=== PATIENT | male | born 1985 | race Caucasian/White ===

== ENCOUNTER 2020-06-22 11:18 | Outpatient (CLI) | payer OTHER, SELFPAY ==
--- NOTE | ~2020-06-22 | XR_ITS ---
EXAMINATION: XR ribs LT 2V w CXR 2V INDICATION: Left-sided chest pain TECHNIQUE: PA and lateral views of the chest and 3 views of the left ribs were obtained. COMPARISON: None. FINDINGS: The lungs are free of acute opacities. There is no pleural effusion or pneumothorax. The ca rdiomediastinal silhouette is normal. The visualized bones and soft tissues are unremarkable. No disp laced rib fracture is identified. IMPRESSION: 1. No acute cardiopulmonary abnormality or evidence of displaced rib fracture. Reviewed, dictated and finalized at location A.
--- NOTE | ~2020-06-22 | XR_ITS ---
EXAMINATION:XR cervical spine 4-5V DATE: 06/22/2020 11:59 INDICATION: Cervicalgia TECHNIQUE: AP, lateral, lateral swimmers and odontoid views of the cervical spine are provided. COMPARISON: None FINDINGS: Alignment is normal. The odontoid is intact. No fracture is identified. Vertebral body heig hts and disk spaces are normal. Prevertebral soft tissues are normal. IMPRESSION: 1. Unremarkable cervical spine. Reviewed, dictated and finalized at location A.
== END 2020-06-22 11:19 | disposition home or self-care (01) ==
LOC: ANHIMG 11:33
PROVIDERS: PCP Family Medicine; Visit Provider Physician Assistant
DX: M54.2 Cervicalgia (principal); R07.81 Pleurodynia
CPT/HCPCS: 71046; 71100; 72050

== ENCOUNTER → 2021-04-16 12:02 | Outpatient (CLI) | payer OTHER, SELFPAY ==
--- NOTE | ~2021-04-16 | XR_ITS ---
EXAMINATION: XR wrist RT min 3V DATE: 04/16/2021 12:32 INDICATION: Right wrist pain TECHNIQUE: Posteroanterior, ulnar deviation, oblique, and lateral views of the right wrist were obtai nalini. COMPARISON: none FINDINGS: Alignment is normal. No fracture. Joint spaces are normal. Soft tissues are unremarkable. IMPRESSION: 1. Negative right wrist radiographs. Reviewed, dictated and finalized at location A.
== END ==
PROVIDERS: PCP Family Medicine; Visit Provider Family Medicine
DX: M25.531 Pain in right wrist (principal)
CPT/HCPCS: 73110

== ENCOUNTER 2022-02-16 12:50 | Emergency (ER) | payer OTHER, SELFPAY ==
[2022-02-16 13:09] VITALS: BP 147/81; PULSE 67; RESP 18; TEMP 36.3; O2SAT 99
--- NOTE | 2022-02-16 13:44 | ED.URI ---
HPI - URI/Sore Throat General Chief Complaint: Upper Respiratory Infection Stated Complaint: cold symptoms Time Seen by Provider: 02/16/22 13:26 Source: patient and RN notes reviewed Mode of arrival: ambulatory Limitations: no limitations History of Present Illness HPI Narrative: Patient presents today complaining of a 6-day history of fever up to 100.1, chills, body aches, headache, sore throat, cough, and sinus pressure. States his symptoms have very slightly improved since onset. Denies shortness of breath. Denies history of asthma or COPD. He has been taking Tylenol and ibuprofen with mild relief. He has been vaccinated against COVID-19, but not influenza. MD elicited complaint: fever, cough, sore throat and nasal congestion Related Data Allergies Allergy/AdvReac Type Severity Reaction Status Date / Time lisinopril AdvReac Intermediate depressed Verified 02/16/22 13:23 mood; mood changes Review of Systems Review of Systems: CONSTITUTIONAL: Denies sweats.+ Fever, chills, body aches EYES: Denies visual changes, redness, or discharge. ENT: Denies rhinorrhea,otalgia.+ Congestion sore throat, sinus pressure CARDIOVASCULAR: Denies chest pain, palpitations, or edema. RESPIRATORY: Denies dyspnea.+ Cough GASTROINTESTINAL: Denies abdominal pain, nausea, vomiting, or diarrhea. GENITOURINARY: Denies dysuria or hematuria. SKIN: Denies rash, itching, or wounds. MUSCULOSKELETAL: Denies back pain, joint pain, or myalgia. NEUROLOGIC: Denies numbness, tingling, or weakness.+ Headache PSYCH: Denies depression or anxiety. PMFSH Past Medical History Medical History Back injury Diverticulitis GERD (gastroesophageal reflux disease) HLD (hyperlipidemia) Kidney stones UTI (urinary tract infection) Surgical History Surgical History H/O inguinal hernia repair Hx of myringotomy Hx of tonsillectomy Family History Family History Mother Asthma Patient's mother is in good health Father Patient's father is in good health Social History Social History Smoking status: Never smoker Second hand tobacco smoke exposure: No Alcohol intake: never Substance use: never Substance use type: does not use Gender identity (if verbalized by the patient): Male Sexual Orientation (if Verbalized by the Patient): Straight or Heterosexual Comments At time of signature, I have reviewed and agree with nursing past medical, surgical, social and family history unless otherwise noted. Please see nursing chart for further information. There is no relevant family history pertinent to the presenting complaint Exam Narrative: GENERAL: Well-appearing, well-nourished, and in no acute distress. HEAD: Normocephalic, atraumatic. EYES: EOMI. No redness or drainage. Conjunctivae normal. ENT: Mucous membranes pink and moist. Nares congested. Bilateral nasal turbinates are edematous with rhinorrhea. TMs normal bilaterally. Throat normal. Uvula midline. NECK: Normal AROM. Supple. No lymphadenopathy. CHEST: No respiratory distress. Clear to auscultation. HEART: Regular rate and rhythm. No murmur appreciated. Normal peripheral pulses. EXTREMITIES: Normal range of motion. No edema. SKIN: Warm, dry, no rash. Capillary refill normal. Normal skin turgor. NEURO: No focal deficits. Alert and oriented x3. Gait steady. PSYCH: Normal affect. No signs of depression or anxiety. Course Course Level of Care: Express Care Visit Vital Signs Vital signs: Vital Signs Temperature 97.4 F L 02/16/22 13:09 Pulse Rate 67 02/16/22 13:09 Respiratory Rate 18 02/16/22 13:09 Blood Pressure 147/81 H 02/16/22 13:09 Pulse Oximetry 99 02/16/22 13:09 Temperature 97.4 F L 02/16/22 13:09 Pulse Rate 6
== END 2022-02-16 13:53 | disposition home or self-care (01) ==
PROVIDERS: Emergency Provider Nurse Practitioner; PCP Family Medicine
DX: J06.9 Acute upper respiratory infection, unspecified (principal); Z20.822 Contact with and (suspected) exposure to COVID-19; K21.9 Gastro-esophageal reflux disease without esophagitis; E78.5 Hyperlipidemia, unspecified
CPT/HCPCS: 87081; 87426; 87804; 87880; 99213; C9803; G0463

== ENCOUNTER 2023-01-22 06:32 | Outpatient (CLI) | payer OTHER, SELFPAY ==
[2023-01-22 06:53] LABS: Hematocrit 44.7 % (42.0-52.0); Hemoglobin 16.2 g/dL (14.0-18.0); Mean Corpuscular HGB Conc 36.2 g/dl (32-36); Mean Corpuscular Hemoglobin 29.2 pg (26-34); Mean Corpuscular Volume 80.5 fl (80-100); Mean Platelet Volume 8.7 fl (7.4-10.4); Platelet Count Result 190 k/mm3 (150-375); Red Blood Count 5.55 M/mm3 (4.6-6.20); Red Cell Distribution Width 12.4 % (11.5-14.5); White Blood Count 6.4 K/mm3 (4.5-10.0)
[2023-01-22 07:16] LABS: Alanine Aminotransferase 60 U/L (6-50); Albumin Level 4.4 g/dL (3.5-5.1); Alkaline Phosphatase 79 U/L (38-126); Anion Gap 4 mmol/L (8-16); Aspartate Amino Transferase 34 U/L (17-59); Bilirubin,Total 1.2 mg/dL (0.2-1.3); Blood Urea Nitrogen 15 mg/dL (9-20); Calcium 8.9 mg/dL (8.4-10.2); Carbon Dioxide 31 mmol/L (22-30); Chloride 105 mmol/L (98-107); Cholesterol 174 mg/dL (0-200); Estimated Glomerular Filt Rate > 60; Glucose 97 mg/dL (65-110); HDL Direct 30 mg/dL; Potassium 3.7 mmol/L (3.4-5.0); Sodium 140 mmol/L (137-145); Triglycerides 140 mg/dL (<150)
[2023-01-22 07:27] LABS: LDL Cholesterol Direct 104 mg/dL
[2023-01-22 08:00] LABS: Appearance Urine Clear (Clear); Bacteria Urine None Seen /hpf; Bilirubin Urine Negative (Negative); Blood Urine Negative (Negative); Color Urine Dark Yellow (Yellow); Glucose Urine UA Negative (Negative); Ketones Urine Trace mg/dL (Negative); Leukocyte Esterase Ur Negative LEU/UL (NEGATIVE); Need Manual Microscopic Reviewed; Nitrate Urine Negative (Negative); Non Pathogenic Casts 0-2; Protein Urine Trace mg/dL (Negative); RBC Urine 0-2 /hpf (0-2); Specific Grav Ur 1.029 (1.001-1.035); Squamous Epithelial Cell Urine None seen /hpf (Few); WBC Urine 0-5 /hpf (0-3); pH Urine 5.5 (5.0-9.0)
[2023-01-22 08:02] LABS: Add Urine Microscopic? YES
== END 2023-01-22 06:33 | disposition home or self-care (01) ==
LOC: ANHLAB 06:34
PROVIDERS: PCP Family Medicine; Visit Provider Physician Assistant
DX: Z00.00 Encounter for general adult medical examination without abnormal findings (principal); G47.33 Obstructive sleep apnea (adult) (pediatric); K21.9 Gastro-esophageal reflux disease without esophagitis; I10 Essential (primary) hypertension
CPT/HCPCS: 36415; 80053; 80061; 81001; 84443; 85027

== ENCOUNTER 2023-08-24 10:40 | Emergency (ER) | payer OTHER, SELFPAY ==
[2023-08-24 10:53] VITALS: BP 124/82; PULSE 66; RESP 16; TEMP 36.3; O2SAT 97
--- NOTE | 2023-08-24 11:57 | ED.GENADULT ---
HPI - General Adult General Chief complaint: Upper Respiratory Infection Stated complaint: Sore Throat Time Seen by Provider: 08/24/23 11:57 Source: patient Mode of arrival: ambulatory Limitations: no limitations History of Present Illness HPI narrative: 37-YEAR-OLD MALE PATIENT PRESENTS TO THE [facility] WITH COMPLAINTS OF A SCRATCHY THROAT THAT STARTED THIS MORNING. PATIENT STATES THAT HIS WAS DIAGNOSED WITH STREP LAST WEEK AND WHEN TO COME IN AND GET CHECKED OUT AND SWAB. PATIENT STATES HIS THROAT PAIN HAS GOTTEN BETTER DENIES ANY FEVERS, BODY ACHES OR CHILLS. Related Data Allergies Allergy/AdvReac Type Severity Reaction Status Date / Time amlodipine AdvReac Intermediate Swelling Verified 08/24/23 11:14 lisinopril AdvReac Intermediate depressed Verified 08/24/23 11:14 mood; mood changes Review of Systems Review of Systems: CONSTITUTIONAL: Denies fever, chills, or sweats. EYES: Denies visual changes, redness, or discharge. ENT: Denies rhinorrhea, congestion, POSITIVE sore throat, or otalgia. CARDIOVASCULAR: Denies chest pain, palpitations, or edema. RESPIRATORY: Denies cough or dyspnea. GASTROINTESTINAL: Denies abdominal pain, nausea, vomiting, or diarrhea. GENITOURINARY: Denies dysuria or hematuria. SKIN: Denies rash or itching. MUSCULOSKELETAL: Denies back pain, joint pain, or myalgia. NEUROLOGIC: Denies headache, numbness, or weakness. PSYCHIATRIC: Denies anxiety or depression. [facility] Past Medical History Medical History Back injury Diverticulitis GERD (gastroesophageal reflux disease) HLD (hyperlipidemia) Kidney stones UTI (urinary tract infection) Witnessed episode of apnea Surgical History Surgical History H/O inguinal hernia repair Hx of myringotomy Hx of tonsillectomy Family History Family History Mother Asthma Patient's mother is in good health Father Patient's father is in good health Social History Social History Smoking status: Never smoker Second hand tobacco smoke exposure: No Alcohol intake: never Substance use: never Substance use type: does not use Living arrangements: with family Occupation/Education: occupation Gender identity (if verbalized by the patient): Male Sexual Orientation (if Verbalized by the Patient): Straight or Heterosexual Comments At the time of my signature I agree with nursing past medical history, surgical, social, and family history. There is no relevant family history pertinent to the presenting complaint. Exam Narrative: GENERAL: Well-appearing, well-nourished, and in no acute distress. HEAD: Normocephalic, atraumatic. EYES: PERRLA and EOMI. ENT: Nares clear, no rhinorrhea or epistaxis. Mucous membranes moist. posterior pharynx no erythema, tonsillar enlargement, exudates or lesions present. Bilateral TMs are clear no erythema or foreign bodies the canal. NECK: Supple. No lymphadenopathy CHEST: Clear to auscultation. No respiratory distress. HEART: Regular rate and rhythm. No murmur heard. Normal peripheral pulses. ABDOMEN: Soft, nontender, nondistended, normal active bowel sounds. EXTREMITIES: Normal range of motion. No edema. SKIN: Warm, dry, no rash. NEURO: No focal deficits. Alert and oriented x3. Course Course Level of Care: Express Care Visit Vital Signs Vital signs: Vital Signs Temperature 36.3 C L 08/24/23 10:53 Pulse Rate 66 08/24/23 10:53 Respiratory Rate 16 08/24/23 10:53 Blood Pressure 124/82 08/24/23 10:53 Pulse Oximetry 97 08/24/23 10:53 Oxygen Delivery Room Air 08/24/23 10:53 Temperature 36.3 C L 08/24/23 10:53 Pulse Rate 66 08/24/23 10:53 Respiratory Rate 16 08/24/23 10:53 Blood Pressure 124/82 08/24/23 10:53 Pulse Oximetry 97
== END 2023-08-24 12:05 | disposition home or self-care (01) ==
PROVIDERS: Emergency Provider Nurse Practitioner Family; PCP Family Medicine
DX: J02.9 Acute pharyngitis, unspecified (principal); E78.5 Hyperlipidemia, unspecified
CPT/HCPCS: 87081; 87880; 99213; G0463

== ENCOUNTER 2024-04-09 08:13 | Emergency (ER) | payer OTHER, SELFPAY ==
[2024-04-09 08:34] VITALS: BP 123/84; PULSE 58; RESP 18; TEMP 36.7; O2SAT 98
[2024-04-09 08:40] VITALS: BP 123/84; PULSE 58; RESP 18; TEMP 36.7; O2SAT 98
--- NOTE | 2024-04-09 08:54 | ED.WOUNDLAC ---
HPI - Wound/Laceration General Chief Complaint: Wound/Laceration Stated Complaint: cut to rt pinky finger Time Seen by Provider: 04/09/24 08:54 Source: patient Mode of arrival: ambulatory Limitations: no limitations History of Present Illness HPI narrative: 38-year-old male presented for complaint of laceration to the right little finger after injury last night. He states he cut his finger on a piece of a car. Rinsed it in the sink and applied bandaid. Endorses tetanus is up-to-date within the last 5 years. Denies decreased range of motion or weakness to the finger. Related Data Allergies Allergy/AdvReac Type Severity Reaction Status Date / Time amlodipine AdvReac Intermediate Swelling Verified 04/09/24 08:40 lisinopril AdvReac Intermediate depressed Verified 04/09/24 08:40 mood; mood changes Review of Systems Review of Systems: CONSTITUTIONAL: Denies body aches, fever, chills, or sweats. CARDIOVASCULAR: Denies chest pain, palpitations, or edema. RESPIRATORY: Denies cough or dyspnea. GASTROINTESTINAL: Denies abdominal pain, nausea, vomiting, or diarrhea. SKIN: reports little finger laceration MUSCULOSKELETAL: Denies back pain, joint pain, or myalgia. NEUROLOGIC: Denies headache, numbness, tingling, or weakness. [facility] Past Medical History Medical History Back injury Diverticulitis GERD (gastroesophageal reflux disease) HLD (hyperlipidemia) Kidney stones UTI (urinary tract infection) Witnessed episode of apnea Surgical History Surgical History H/O inguinal hernia repair Hx of myringotomy Hx of tonsillectomy Family History Family History Mother Asthma Patient's mother is in good health Father Patient's father is in good health Social History Social History Smoking status: Never smoker Second hand tobacco smoke exposure: No Alcohol intake: never Substance use: never Substance use type: does not use Living arrangements: with family Occupation/Education: occupation Gender identity (if verbalized by the patient): Male Sexual Orientation (if Verbalized by the Patient): Straight or Heterosexual Comments At time of signature, I have reviewed and agree with nursing past medical, surgical, social and family history unless otherwise noted. Please see nursing chart for further information. There is no relevant family history pertinent to the presenting complaint Exam Narrative: GENERAL: Well-appearing ENT: Mucous membranes moist. Oropharynx without edema, erythema or lesions. NECK: Supple. No lymphadenopathy CHEST: Clear to auscultation. HEART: Regular rate and rhythm. SKIN: Warm, dry. Right 5th digit distal phalanx with 1.5cm irregular laceration, active bleeding, minimal nail edge involvement, CMS intact. NEURO: Alert and oriented x3. Extrem: Hand/finger images: 1. area of laceration Course Course Emergency Course: Patient is aware of diagnosis, understands and agrees to treatment plan. Anticipatory guidance given. Patient agrees to follow-up as directed and is aware of reasons to seek care at the emergency department. Portions of this record may have been created with voice recognition software Level of Care: Express Care Visit Vital Signs Vital signs: Vital Signs Temperature 98.1 F 04/09/24 08:34 Pulse Rate 58 L 04/09/24 08:34 Respiratory Rate 18 04/09/24 08:34 Blood Pressure 123/84 04/09/24 08:34 Pulse Oximetry 98 04/09/24 08:34 Oxygen Delivery Room Air 04/09/24 08:34 Temperature 98.1 F 04/09/24 08:40 Pulse Rate 58 L 04/09/24 08:40 Respiratory Rate 18 04/09/24 08:40 Blood Pressure 123/84 04/09/24 08:40 Pulse Oximetry 98 04/09/24 08:40 Oxygen Delivery Room Air 04/09/24 08:40 R
[2024-04-09] MEDS: LIDOCAINE HCL 1% LOCAL INJ 2 ML AMPUL 4 ML INFILTRATE (09:07)
== END 2024-04-09 09:52 | disposition home or self-care (01) ==
PROVIDERS: Emergency Provider Nurse Practitioner Family; PCP Family Medicine
DX: S61.216A Laceration without foreign body of right little finger without damage to nail, initial encounter (principal); W45.8XXA Other foreign body or object entering through skin, initial encounter; K21.9 Gastro-esophageal reflux disease without esophagitis; E78.5 Hyperlipidemia, unspecified
CPT/HCPCS: 12001; 99213; G0463

== ENCOUNTER 2024-04-20 11:58 | Emergency (ER) | payer OTHER, SELFPAY ==
--- NOTE | 2024-04-20 12:10 | ED.SKABFB ---
HPI - Skin/Abscess/Foreign Bdy General Chief complaint: Skin/Abscess/Foreign Body Stated complaint: stitch follow-up Time Seen by Provider: 04/20/24 12:10 Source: patient, RN notes reviewed and old records reviewed Mode of arrival: ambulatory Limitations: no limitations History of Present Illness HPI narrative: 38 yo male presents to the [facility] requesting to have suttures removed. 5 sutures placed 04/09/2024 No surrounding erytherma or swelling. Related Data Allergies Allergy/AdvReac Type Severity Reaction Status Date / Time amlodipine AdvReac Intermediate Swelling Verified 04/20/24 12:00 lisinopril AdvReac Intermediate depressed Verified 04/20/24 12:00 mood; mood changes Review of Systems Review of Systems: All systems reviewed & are unremarkable except as noted in HPI and below Constitutional: Constitutional: Reports no additional constitutional complaints Eyes: Eyes: Reports no additional eye complaints ENT: Reports system reviewed and no additional complaints, except as documented Cardiovascular: Cardiovascular: Reports no additional cardiovascular complaints, Denies chest pain and Denies dyspnea Respiratory: Respiratory: Reports no additional respiratory complaints, Denies chest congestion, Denies cough and Denies dyspnea Gastrointestinal: Gastrointestinal: Reports no additional gastrointestinal complaints, Denies abdominal pain, Denies nausea and Denies vomiting Musculoskeletal: Musculoskeletal: Reports no additional musculoskeletal complaints Integumentary/Breasts: Skin/Breast: Reports as per HPI Neurologic: Reports system reviewed and no additional complaints, except as documented Psychiatric: Psychiatric: Reports no additional psychiatric complaints Allergic/Immunologic: Allergic/Immunologic: Reports no additional allergic/immunologic complaints PMFSH Past Medical History Medical History Back injury Diverticulitis GERD (gastroesophageal reflux disease) HLD (hyperlipidemia) Kidney stones UTI (urinary tract infection) Witnessed episode of apnea Surgical History Surgical History H/O inguinal hernia repair Hx of myringotomy Hx of tonsillectomy Family History Family History Mother Asthma Patient's mother is in good health Father Patient's father is in good health Social History Social History Smoking status: Never smoker Second hand tobacco smoke exposure: No Alcohol intake: never Substance use: never Substance use type: does not use Living arrangements: with family Occupation/Education: occupation Gender identity (if verbalized by the patient): Male Sexual Orientation (if Verbalized by the Patient): Straight or Heterosexual Comments At the time of my signature, I reviewed and agree with the nursing past medical, surgical, social, and family history. There is no relevant family history pertinent to the patient complaint. Exam Const: General: cooperative, healthy appearing, comfortable, no acute distress, well developed, alert and well nourished Nutritional Appearance: well nourished Orientation/consciousness: patient oriented x3 Limitations: no limitations HENMT: Head: normal to inspection Ears: hearing grossly normal bilaterally and external ears normal Face/Nose/Sinus: Normal external nose present, Normal nares present, Normal nasal mucous membranes and turbinates present, normal facial exam and face symmetric Face and sinus: normal facial exam and face symmetric Eyes: General: appearance normal, both eyes and all related structures Alignment and Position: alignment normal Periorbital: periorbital findings normal Neck: Neck: normal visual inspection, full ROM, no lymphadenopathy and no meningeal signs Chest: Chest palpation & inspe
[2024-04-20 12:11] VITALS: BP 135/88; PULSE 78; RESP 18; TEMP 36.3; O2SAT 97
== END 2024-04-20 12:28 | disposition home or self-care (01) ==
PROVIDERS: Emergency Provider Nurse Practitioner; PCP Family Medicine
DX: Z48.02 Encounter for removal of sutures (principal); K21.9 Gastro-esophageal reflux disease without esophagitis; E78.5 Hyperlipidemia, unspecified
CPT/HCPCS: 99211; G0463

== ENCOUNTER 2025-01-22 10:41 | Outpatient (CLI) | payer OTHER, SELFPAY ==
--- OUTSIDE RECORDS SUMMARY | 2025-01-22 10:44 | XMS_ITS | Clinical Summary ---
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 Name Role Phone Unavailable Primary Care Provider Unavailabl e Social History Tobacco Use Types Packs/Day Years Used Date Smoking Tobacco: Never Assessed Sex and Gender Information Value Date Recorded Sex Assigned at Not on file Legal Sex Male 8:21 PM CDT Gender Identity Not on file Sexual Orientation Not on file Plan of Treatment Health Maintenance Due Date Last Done Comments Annual Physical 1986 Hepatitis C 2001 DTaP, Tdap and Td Vaccines ( 1 - Tdap) 2002 Hepatitis B Vaccines (1 of 3 - 19+ 3-dose series) 2002 COVID-19 Vaccine (2023-2 5 season) 2024 Influenza Adult (#1) 2024 HPV Vaccines Aged Out No longer eligi ble based on patient's age to complete this topic Meningococcal B Vaccine Aged Out No l onger eligible based on patient's age to complete this topic Meningococcal Vaccine Aged Out No sonya roberto eligible based on patient's age to complete this topic Pneumococcal Vaccine: Pediat rics (0 to 5 Years) and At-Risk Patients (6 to 64 Years) Aged Out No longer eligible b ased on patient's age to complete this topic RSV Immunizations Under 20 Months Aged Out No longer eligible based on patient's age to complete this topic
[2025-01-22 11:09] LABS: Hematocrit 46.1 % (42.0-52.0); Hemoglobin 16.5 g/dL (14.0-18.0); Mean Corpuscular HGB Conc 35.8 g/dl (32-36); Mean Corpuscular Hemoglobin 29.3 pg (26-34); Mean Corpuscular Volume 81.9 fl (80-100); Mean Platelet Volume 8.9 fl (7.4-10.4); Platelet Count Result 192 k/mm3 (150-375); Red Blood Count 5.63 M/mm3 (4.6-6.20); Red Cell Distribution Width 12.7 % (11.5-14.5); White Blood Count 6.4 K/mm3 (4.5-10.0)
[2025-01-22 11:13] LABS: Add Urine Microscopic? YES; Appearance Urine Clear (Clear); Bacteria Urine None Seen /hpf; Bilirubin Urine Negative (Negative); Blood Urine Negative (Negative); Color Urine Yellow (Yellow); Glucose Urine UA Negative (Negative); Ketones Urine Trace mg/dL (Negative); Leukocyte Esterase Ur Negative LEU/UL (Negative); Nitrate Urine Negative (Negative); Non Pathogenic Casts 0-2; Protein Urine Trace mg/dL (Negative); RBC Urine 0-2 /hpf (0-2); Specific Grav Ur 1.025 (1.001-1.035); Squamous Epithelial Cell Urine None Seen /hpf (Few); WBC Urine 0-5 /hpf (0-3); pH Urine 6.5 (5.0-9.0)
[2025-01-22 11:19] LABS: Alanine Aminotransferase 40 U/L (6-50); Albumin Level 4.6 g/dL (3.5-5.1); Alkaline Phosphatase 67 U/L (38-126); Anion Gap 10 mmol/L (4-12); Aspartate Amino Transferase 27 U/L (17-59); Bilirubin,Total 1.2 mg/dL (0.2-1.3); Blood Urea Nitrogen 12 mg/dL (9-20); Calcium 9.5 mg/dL (8.4-10.2); Carbon Dioxide 29 mmol/L (22-30); Chloride 101 mmol/L (98-107); Cholesterol 185 mg/dL (0-200); Estimated Glomerular Filt Rate > 60; Glucose 96 mg/dL (65-110); HDL Direct 36 mg/dL; Potassium 3.8 mmol/L (3.4-5.0); Sodium 140 mmol/L (137-145); Triglycerides 189 mg/dL (<150)
[2025-01-22 11:29] LABS: LDL Cholesterol Direct 95 mg/dL
== END 2025-01-22 10:42 | disposition home or self-care (01) ==
LOC: ANHLAB 10:42
PROVIDERS: PCP Family Medicine; Visit Provider Physician Assistant Medical
DX: Z00.00 Encounter for general adult medical examination without abnormal findings (principal); I10 Essential (primary) hypertension; E78.00 Pure hypercholesterolemia, unspecified; G47.33 Obstructive sleep apnea (adult) (pediatric)
CPT/HCPCS: 36415; 80053; 80061; 81001; 84443; 85027